=== PATIENT | male | born 1950 | race Caucasian/White ===

== ENCOUNTER 2023-11-09 14:30 | Outpatient (CLI) | payer MEDICARE ==
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
== END 2023-11-09 16:30 | disposition home or self-care (01) ==
LOC: 3 N SLEEP 14:30
PROVIDERS: ATTEND Internal Medicine Critical Care Medicine
DX: G47.33 Obstructive sleep apnea (adult) (pediatric) (principal); G47.10 Hypersomnia, unspecified; R06.83 Snoring; I10 Essential (primary) hypertension; E78.5 Hyperlipidemia, unspecified; N40.0 Benign prostatic hyperplasia without lower urinary tract symptoms; E66.9 Obesity, unspecified; Z68.32 Body mass index [BMI] 32.0-32.9, adult; Z99.89 Dependence on other enabling machines and devices; Z90.49 Acquired absence of other specified parts of digestive tract; Z96.659 Presence of unspecified artificial knee joint; Z87.891 Personal history of nicotine dependence
CPT/HCPCS: 99202

== ENCOUNTER → 2023-12-21 | Outpatient (CLI) | payer MEDICARE ==
--- NOTE | 2023-12-21 16:30 | P.PN ---
Progress Note - Text Progress Note Date: 12/21/23 This is a 73-year-old male patient was coming in for a compliancy check regarding his obstructive sleep apnea treatment. The patient was diagnosed having severe CANDELARIA and this was done in an outside sleep center and the patient was found diagnosed having severe CANDELARIA with an AHI of 54.9 with a minimum pulse ox of 67%. This is based on a home study that was done on 09/06/2023. Subsequently, the patient was given a CPAP titration and he was given an APAP machine pressures of 10/17 cm of water. On today's evaluation, the patient is coming in for a compliancy check. The patient reporting improvement in his sleep quality. Improvement in his daytime alertness and functionality. Based on a 30-day compliancy data that has been collected on the machine, his overall compliance was 100% and the patient has achieved more than 4 hours of usage 27 out of 30 days. He has been averaging around 5.7 hours of CPAP use per night and his P 95th percentile pressure is at 15.3 and his AHI is down to 9.5. He is having excessive leaks in the order of 66 L/min and the patient is using the AirFit P10 nasal pillows medium size. I noted that his mask fit was not great as the patient's headgear has been Quite loose. No recent weight gain. No nighttime chest pain or shortness of breath. He is having some issues with humidity and he feels the humidification system from his CPAP machine is excessive and he needs to be modified. BP is 129/64 with a pulse of 56 and a respiration of 12 and a temperature of 97.2 and the patient has an [place] score of 2 with a body mass index of 32.3 and a weight of 225 pounds. Height is 5 feet and 9 inches The patient appeared well nourished and normally developed. Vital signs as documented. Head exam is unremarkable. No scleral icterus or corneal arcus noted. Neck is without jugular venous distension, thyromegaly, or carotid bruits. Carotid upstrokes are brisk bilaterally. Lungs are clear to auscultation and percussion. Cardiac exam reveals the PMI to be normally sized and situated. Rhythm is regular. First and second heart sounds normal. No murmurs, rubs or gallops. Abdominal exam reveals normal bowel sounds, no masses, no organomegaly and no aortic enlargement. Extremities are nonedematous and both femoral and pedal pulses are normal. Examination of the skin revealed no evidence of significant rashes, suspicious appearing nevi or other concerning lesions. Neurologically, the patient is awake and alert and the patient does not have any focal neurological deficit. Cranial nerves are essentially intact. Review of system 14 point review of system was done and the positive findings were mentioned above history of present illness Medication includes amlodipine 10 mg p.o. daily, aspirin 81 mg p.o. daily, atenolol 25 mg p.o. daily, Lipitor 40 mg p.o. daily, hydralazine 100 mg twice a day, losartan 100 mg p.o. twice a day, Flomax 0.4 mg p.o. daily and primidone 100 mg p.o. twice a day Assessment Severe symptomatic CANDELARIA with an AHI of 54. The patient is undergoing successful CPAP therapy Hypertension Hyperlipidemia BPH Obesity Chronic hypersomnia improved and the patient's [place] score is down to 2 Plan Continue CPAP therapy at the same level of pressures of 10/17 cm of water APAP mode Keep the same mask interface and appropriate education was given on the mask fit Altered her medication to manual control and septal level at 3 with a temperature of the tubing at 72 F Continue using the CPAP therapy Encourage weight loss See me back in the office in 1 years time in follow-up. Treatment is successful and the patient is achieving compliance required by insurance standards.
== END ==
LOC: 3 N SLEEP 15:13
PROVIDERS: ATTEND Internal Medicine Critical Care Medicine
DX: G47.33 Obstructive sleep apnea (adult) (pediatric) (principal); I10 Essential (primary) hypertension; E78.5 Hyperlipidemia, unspecified; N40.0 Benign prostatic hyperplasia without lower urinary tract symptoms; E66.9 Obesity, unspecified; G47.10 Hypersomnia, unspecified; Z99.89 Dependence on other enabling machines and devices
CPT/HCPCS: 99212